=== PATIENT | female | born 1990 ===

== ENCOUNTER 2021-05-12 14:20 | Inpatient (IN) | payer OTHER ==
[2021-05-12] MEDS ORDERED: ELECTROLYTE-148 SOLN 1,000 ML IV SCH (18:00)
[2021-05-12] MEDS ORDERED: AMPICILLIN SODIUM 2 GM VIAL IVPB ONE (18:00)
[2021-05-12 18:06] LABS: BASO % 0.1 % (0-2.0); EOS % 0.1 % (0-4.5); HEMATOCRIT 32.4 % (32.4-45.2); HEMOGLOBIN 10.6 GM/dL (10.7-15.3); LYMPH % 14.1 % (8-40); MCH 29.3 pg (25.7-33.7); MCHC 32.7 g/dl (32.0-36.0); MEAN CELL VOLUME 89.6 fl (80-96); MEAN PLT VOLUME 8.1 fl (7.5-11.1); MONO % 6.4 % (3.8-10.2); NEUT % 79.3 % (42.8-82.8); PLATELET COUNT 266 10^3/uL (134-434); RBC 3.62 M/mm3 (3.60-5.2); RDW 14.3 % (11.6-15.6); WHITE BLOOD COUNT 13.4 K/mm3 (4.0-10.0)
[2021-05-12 18:15] LABS: INR 0.99 (0.83-1.09); PROTHROMBIN TIME (PATIENT) 11.1 SEC (9.7-13.0)
[2021-05-12] MEDS ORDERED: AMPICILLIN SODIUM 2 GM VIAL ONE (18:16)
[2021-05-12 18:18] LABS: ACTIVATED PTT 23.8 SECONDS (25.2-36.5)
[2021-05-12 18:28] LABS: BLOOD UREA NITROGEN 6.4 mg/dL (7-18); CALCIUM 8.4 mg/dL (8.5-10.1)
[2021-05-12 18:32] LABS: CREATININE 0.5 mg/dL (0.55-1.3)
[2021-05-12 19:02] VITALS: BMI 25.4
[2021-05-12] MEDS: AMPICILLIN SODIUM 1 GM VIAL IVPB SCH (22:30)
[2021-05-12] MEDS ORDERED: AMPICILLIN SODIUM 1 GM VIAL ONE (22:46)
[2021-05-13] MEDS ORDERED: BUTORPHANOL TARTRATE 2 MG/ML VIAL IVPB ONE (01:00)
[2021-05-13] MEDS ORDERED: BUTORPHANOL TARTRATE 2 MG/ML VIAL ONE (01:00)
[2021-05-13] MEDS ORDERED: PROMETHAZINE HCL 25 MG/1 ML VIAL IVPB ONE (01:00)
[2021-05-13] MEDS ORDERED: PROMETHAZINE HCL 25 MG/1 ML VIAL ONE (01:01)
[2021-05-13] MEDS: AMPICILLIN SODIUM 1 GM VIAL IVPB SCH ×4 (02:30→17:02)
[2021-05-13] MEDS ORDERED: AMPICILLIN SODIUM 1 GM VIAL ONE (02:50)
[2021-05-13] MEDS ORDERED: OXYTOCIN 20 UNITS in 0.9% NS 20 UNIT/1,000 ML INFUS.BAG IV ONE (02:51)
[2021-05-13] MEDS ORDERED: LIDOCAINE HCL 1% PRESERVATIVE FREE - 30ML VIAL ONE (02:51)
[2021-05-13] MEDS ORDERED: BENZOCAINE 20% 57 GM BOTTLE TP PRN (03:54)
[2021-05-13] MEDS ORDERED: METHYLERGONOVINE MALEATE 0.2 MG/1 ML AMP IM PRN (03:54)
[2021-05-13] MEDS ORDERED: oxyCODONE HCL 5 MG TABLET PO PRN (03:54)
[2021-05-13] MEDS ORDERED: WITCH HAZEL 50% (TUCKS) 40 PAD/JAR PAD TP PRN (03:54)
[2021-05-13] MEDS ORDERED: BISACODYL 10 MG SUPP.RECT RC PRN (03:54)
[2021-05-13] MEDS ORDERED: ACETAMINOPHEN 325 MG TABLET (FP) PO PRN (03:54)
[2021-05-13] MEDS ORDERED: IBUPROFEN 600 MG TABLET (FP) PO PRN (03:54)
[2021-05-13] MEDS ORDERED: BENZOCAINE 28 GM HEMORRHOIDAL OINTMENT TP PRN (03:54)
[2021-05-13] MEDS ORDERED: OXYTOCIN 20 UNITS in 0.9% NS 20 UNIT/1,000 ML INFUS.BAG IV SCH (04:00)
[2021-05-13] MEDS ORDERED: D5W-LR W/ 20 UNITS OXYTOCIN 1,000 ML IV SCH (04:00)
[2021-05-13] MEDS: FERROUS SO4 325 MG TABLET (FP) PO SCH ×3 (08:46→18:01)
[2021-05-13] MEDS: PRENATAL VITAMINS W/ FOLIC ACID TABLET (FP) PO SCH (09:56)
[2021-05-14 09:32] LABS: BASO % 0.2 % (0-2.0); EOS % 0.3 % (0-4.5); HEMATOCRIT 29.3 % (32.4-45.2); HEMOGLOBIN 9.5 GM/dL (10.7-15.3); LYMPH % 16.3 % (8-40); MCH 29.8 pg (25.7-33.7); MCHC 32.5 g/dl (32.0-36.0); MEAN CELL VOLUME 91.6 fl (80-96); MEAN PLT VOLUME 8.1 fl (7.5-11.1); MONO % 6.5 % (3.8-10.2); NEUT % 76.7 % (42.8-82.8); PLATELET COUNT 254 10^3/uL (134-434); RBC 3.19 M/mm3 (3.60-5.2); RDW 14.4 % (11.6-15.6); WHITE BLOOD COUNT 12.3 K/mm3 (4.0-10.0)
[2021-05-14] MEDS: PRENATAL VITAMINS W/ FOLIC ACID TABLET (FP) PO SCH (09:46)
[2021-05-14] MEDS: FERROUS SO4 325 MG TABLET (FP) PO SCH (09:46)
[2021-05-14 10:20] VITALS: BP 102/69; PULSE 101; TEMP 97.8
[2021-05-14] MEDS ORDERED: SENNOSIDES/DOCUSATE COMBO (SENNA PLUS) TABLET (UD) PO PRN (22:00)
== END 2021-05-14 12:40 | disposition home or self-care (01) | DRG 560 ==
LOC: JLDR 14:20 → J3W 05-13 05:01
PROVIDERS: ADMIT Obstetrics & Gynecology; ATTEND Obstetrics & Gynecology
PROC: 0W8NXZZ Division of Female Perineum, External Approach (ICD-10-PCS; principal; 2021-05-12)
PROC: 0KQM0ZZ Repair Perineum Muscle, Open Approach (ICD-10-PCS; 2021-05-12)
PROC: 10E0XZZ Delivery of Products of Conception, External Approach (ICD-10-PCS; 2021-05-12)
DX: O42.02 Full-term premature rupture of membranes, onset of labor within 24 hours of rupture (principal); O99.344 Other mental disorders complicating childbirth; F41.9 Anxiety disorder, unspecified; O70.1 Second degree perineal laceration during delivery; Z3A.40 40 weeks gestation of pregnancy; Z37.0 Single live birth
CPT/HCPCS: 36415; 59409; 80048; 85025; 85610; 85730; 86780; 86850; 86900; 86901; C9803; U0003; U0005